=== PATIENT | male | born 1940 | race Caucasian/White ===

== ENCOUNTER 2017-03-02 10:43 | Emergency (ER) | payer MEDICAID, MEDICARE ==
[~2017-03-02] VITALS: Ht 175.3 cm; Wt 75.0 kg
[~2017-03-02 10:43] MED LIST: ALLO100T30 PO; HYDR-3307 PO; OMEP20CA9 PO
[2017-03-02] MEDS ORDERED: TAMS-11 PO (10:58)
[2017-03-02 14:01] VITALS: BP 127/76
== END 2017-03-02 14:03 | disposition home or self-care (01) ==
LOC: ED 13:27
DX: Z76.0 Encounter for issue of repeat prescription (principal); S83.91XA Sprain of unspecified site of right knee, initial encounter; N40.1 Benign prostatic hyperplasia with lower urinary tract symptoms; R33.8 Other retention of urine; X50.1XXA Overexertion from prolonged static or awkward postures, initial encounter; Y93.89 Activity, other specified; Y92.410 Unspecified street and highway as the place of occurrence of the external cause; Y99.9 Unspecified external cause status
CPT/HCPCS: 99283